=== PATIENT | male | born 1945 | race Caucasian/White ===

== ENCOUNTER 2021-03-22 10:50 | Outpatient (CLI) | payer MEDICARE, SELFPAY ==
--- NOTE | ~2021-03-22 | XR_ITS ---
EXAMINATION: HAND-ÁNGEL ARTHRITIS 3+VIEWS DATE: 03/22/2021 11:21 INDICATION: Unspecified osteoarthritis. TECHNIQUE: Posteroanterior, lateral, and oblique views of the left and of the right hands as well as a ballcatchers view of both hands were obtained. COMPARISON: None. FINDINGS: The distal right ulna is absent with smooth corticated margin suggesting chronic osteotomy. [place]-neck deformities at the bilateral fifth digits, right more prominent than left. Advanced osteoarthritis a t the bilateral wrist joints with severe joint space narrowing and remodeling with prominent subartic ular cystic change involving the bones on both sides of the joint spaces. Additional severe osteoarth ritis at the left mid carpal joint. Moderate osteoarthritis at the right mid carpal joint, at the ángel ateral triscaphe joints and at the left second metacarpophalangeal joint. Mild osteoarthritis at the bilateral first carpal metacarpal joints and majority the remaining metacarpophalangeal and interphal angeal joints. Juxta-articular lytic lesions with thin sclerotic margins either degenerative cysts or chronic erosions at the radial aspect of the heads of the left second and third metacarpals. Bone is land at the tuft of the right third distal phalanx. IMPRESSION: 1. Polyarticular osteoarthritis at the bilateral hands and wrists, advanced at the bilateral wrists a nd right midcarpal joints. The atypical distribution suggests secondary osteoarthritis related to ind eterminate prior insult with differential including prior trauma or crystalline arthropathy. Reviewed, dictated and finalized at location A. IMPRESSION: 1. Polyarticular osteoarthritis at the bilateral hands and wrists, advanced at the bilateral wrists and right midcarpal joints. The atypical distribution sugg ests secondary osteoarthritis related to indeterminate prior insult with differ ential including prior trauma or crystalline arthropathy.
--- NOTE | ~2021-03-22 | XR_ITS ---
EXAMINATION: XR foot LT standing 2V, XR foot RT standing 2V DATE: 03/22/2021 11:21 INDICATION: Rheumatoid arthritis with rheumatoid factor TECHNIQUE: 1. Weight bearing dorsal plantar and lateral views of the left foot were obtained. 2. Weight bearing dorsal plantar and lateral views of the right foot were obtained. COMPARISON: None. FINDINGS: Right foot Mild right pes planus. Hallux valgus with severe osteoarthritis including remodeling of the medial ba se of the first proximal phalanx and lateral head of the first metatarsal. Prominent subarticular cys tic changes at both sides of joint space more prominent at the head of the first metatarsal. Dorsal s ubluxation/dislocation with hyper dorsiflexion and varus angulation at the right second metatarsophal angeal joint. Moderate osteoarthritis at the second metatarsophalangeal joint. Additional mild polyar ticular osteoarthritis at multiple additional joints in the mid and forefoot. Soft tissues are unrema rkable. No ankle joint effusion. Left foot: More prominent left-sided pes planus. Old healed fracture deformity at the mid diaphysis of the secon d metatarsal. There is dorsal dislocation and proximal migration of the base of the first metatarsal relative to the head of the second metatarsal. There is advanced secondary osteoarthritis with osteol ysis at the base of the first proximal phalanx and with significant loss of bone stock at the head of the first metatarsal. The appears to be overlap on the dorsal plantar projection of the base of the fourth proximal phalanx and head of the fourth metatarsal which is obscured on the lateral projection but suggests additional subluxation/dislocation with secondary osteoarthritis. Mild polyarticular os teoarthritis at multiple joints in the mid and forefoot. Prominent subarticular cystic change within sclerotic margins at the distal aspect of the lateral cuneiform. IMPRESSION: 1. Malalignment with associated secondary osteoarthritis at the bilateral first metatarsophalangeal, right second metatarsophalangeal and left fourth metatarsophalangeal joints. 2. Bilateral pes planus, left greater than right. 3. Old healed fracture deformity of the left second metatarsal diaphysis. No acute osseous abnormalit y. 4. Additional mild polyarticular osteoarthritis in the bilateral mid and forefeet. Reviewed, dictated and finalized at location A. IMPRESSION: 1. Malalignment with associated secondary osteoarthritis at the bilateral first metatarsophalangeal, right second metatarsophalangeal and left fourth metatars ophalangeal joints. 2. Bilateral pes planus, left greater than right. 3. Old healed fracture deformity of the left second metatarsal diaphysis. No ac iqugmiut osseous abnormality. 4. Additional mild polyarticular osteoarthritis in the bilateral mid and forefe et.
[2021-03-22 11:50] LABS: Hematocrit 50.8 % (42.0-52.0); Hemoglobin 16.9 g/dL (14.0-18.0); Mean Corpuscular HGB Conc 33.3 g/dl (32-36); Mean Corpuscular Hemoglobin 29.7 pg (26-34); Mean Corpuscular Volume 89.3 fl (80-100); Mean Platelet Volume 9.8 fl (7.4-10.4); Platelet Count Result 195 k/mm3 (150-375); Red Blood Count 5.69 M/mm3 (4.6-6.20); Red Cell Distribution Width 14.1 % (11.5-14.5); White Blood Count 10.1 K/mm3 (4.5-10.0)
[2021-03-22 11:57] LABS: Add Urine Microscopic? YES; Appearance Urine Clear (Clear); Bilirubin Urine Negative (Negative); Blood Urine 1+ (Negative); Color Urine Yellow (Yellow); Glucose Urine UA Negative (Negative); Ketones Urine Negative (Negative); Leukocyte Esterase Ur Negative LEU/UL (Negative); Mucus Urine Few /lpf; Nitrate Urine Negative (Negative); Protein Urine Negative (Negative); RBC Urine 0-2 /hpf (0-2); Specific Grav Ur 1.023 (1.001-1.035); Urobilinogen Urine Negative mg/dL (<2.0); WBC Urine 0-3 /hpf
[2021-03-22 12:05] LABS: Rheumatoid Factor 119.9 IU/ML (<12)
[2021-03-22 12:06] LABS: Alanine Aminotransferase 18 U/L (4-50); Alkaline Phosphatase 94 U/L (38-126); Anion Gap 9 mmol/L (8-16); Aspartate Amino Transferase 27 U/L (17-59); Bilirubin,Total 0.8 mg/dL (0.2-1.3); Blood Urea Nitrogen 20 mg/dL (9-20); CRP 1.7 mg/dL (<1.0); Calcium 9.6 mg/dL (8.4-10.2); Carbon Dioxide 23 mmol/L (22-30); Chloride 107 mmol/L (98-107); Estimated Glomerular Filt Rate > 60; Glucose 105 mg/dL (75-110); Potassium 4.3 mmol/L (3.4-5.0); Sodium 139 mmol/L (137-145)
[2021-03-22 12:45] LABS: Erythrocyte Sedimentation Rate 17 mm/hr (0-20)
[2021-03-22 12:56] LABS: Hepatitis B Surface Antigen Negative (Negative)
[2021-03-22 13:13] LABS: Hepatitis B Surface Anti Res Negative; Hepatitis C Virus Antibody Negative (Negative)
[2021-03-28 08:05] LABS: Anti Cyclic Citrullinated Pept >250 Units (<20)
== END 2021-03-22 10:51 | disposition home or self-care (01) ==
PROVIDERS: PCP Family Medicine; Visit Provider Internal Medicine
DX: M05.79 Rheumatoid arthritis with rheumatoid factor of multiple sites without organ or systems involvement (principal); M19.071 Primary osteoarthritis, right ankle and foot; M19.072 Primary osteoarthritis, left ankle and foot; M19.031 Primary osteoarthritis, right wrist; M19.032 Primary osteoarthritis, left wrist; M19.041 Primary osteoarthritis, right hand; M19.042 Primary osteoarthritis, left hand
CPT/HCPCS: 36415; 73130; 73620; 80053; 81001; 85027; 85652; 86038; 86039; 86140; 86200; 86430; 86706; 86803; 87340

== ENCOUNTER 2021-07-08 12:39 | Outpatient (CLI) | payer MEDICARE, SELFPAY ==
[2021-07-08 13:16] LABS: Hematocrit 47.2 % (42.0-52.0); Hemoglobin 15.7 g/dL (14.0-18.0); Mean Corpuscular HGB Conc 33.3 g/dl (32-36); Mean Corpuscular Hemoglobin 29.8 pg (26-34); Mean Corpuscular Volume 89.6 fl (80-100); Mean Platelet Volume 10.2 fl (7.4-10.4); Platelet Count Result 184 k/mm3 (150-375); Red Blood Count 5.27 M/mm3 (4.6-6.20); Red Cell Distribution Width 14.5 % (11.5-14.5); White Blood Count 12.5 K/mm3 (4.5-10.0)
[2021-07-08 13:25] LABS: Alanine Aminotransferase 21 U/L (4-50); Alkaline Phosphatase 88 U/L (38-126); Anion Gap 8 mmol/L (8-16); Aspartate Amino Transferase 29 U/L (17-59); Bilirubin,Total 0.6 mg/dL (0.2-1.3); Blood Urea Nitrogen 25 mg/dL (9-20); CRP 0.7 mg/dL (<1.0); Calcium 9.7 mg/dL (8.4-10.2); Carbon Dioxide 24 mmol/L (22-30); Chloride 106 mmol/L (98-107); Estimated Glomerular Filt Rate 59; Glucose 108 mg/dL (65-110); Potassium 4.5 mmol/L (3.4-5.0); Sodium 138 mmol/L (137-145)
[2021-07-08 20:18] LABS: Erythrocyte Sedimentation Rate 16 mm/hr (0-20)
== END 2021-07-08 12:40 | disposition home or self-care (01) ==
PROVIDERS: PCP Family Medicine; Visit Provider Internal Medicine
DX: M05.79 Rheumatoid arthritis with rheumatoid factor of multiple sites without organ or systems involvement (principal); M19.90 Unspecified osteoarthritis, unspecified site
CPT/HCPCS: 36415; 80053; 85027; 85652; 86140; 86480

== ENCOUNTER 2021-11-25 16:44 | Outpatient (CLI) | payer MEDICARE, SELFPAY ==
[2021-11-25 17:37] LABS: Erythrocyte Sedimentation Rate 17 mm/hr (0-20)
[2021-11-25 17:59] LABS: CRP 1.3 mg/dL (<1.0)
[2021-11-25 18:02] LABS: Complement C3 97 mg/dL (88-165)
[2021-11-27 11:08] LABS: SM Antibody <1.0; SM/RNP Antibody <1.0; SS-A <1.0; SS-B <1.0
[2021-11-28 04:58] LABS: Lupus dRVVT 1:1 Mix Interpreta Not Indicated; Lupus dRVVT Screen 33 sec (<=45); PTT-LA Screen 33 sec (<=40)
== END 2021-11-25 16:45 | disposition home or self-care (01) ==
LOC: ANHLAB 16:49
PROVIDERS: PCP Family Medicine; Visit Provider Internal Medicine
DX: M05.79 Rheumatoid arthritis with rheumatoid factor of multiple sites without organ or systems involvement (principal); M19.90 Unspecified osteoarthritis, unspecified site
CPT/HCPCS: 36415; 85613; 85652; 85730; 86140; 86160; 86225; 86235

== ENCOUNTER 2024-03-31 09:50 | Outpatient (CLI) | payer MEDICARE, SELFPAY ==
--- NOTE | ~2024-03-31 | MMUS_ITS ---
EXAMINATION: MM diagnostic meghna LT w sapna, US breast LT limited HISTORY: Follow-up left breast asymmetry TECHNIQUE: Additional 3-D tomosynthesis images of the left breast were performed and synthetic 2-D im ages were generated. Comparison right MLO view performed. CAD analysis was submitted and interpreted. High resolution Limited left breast ultrasound was performed. COMPARISON: None BREAST PARENCHYMAL COMPOSITION: Not dense: There are scattered areas of fibroglandular density. FINDINGS: MAMMOGRAPHIC FINDINGS: There is bilateral symmetric gynecomastia. No suspicious masses, calcifications or architectural dist ortion in either breast to suggest malignancy. ULTRASOUND: Limited left breast ultrasound: Normal heterogeneous echotexture without focal solid or cystic mass. IMPRESSION: 1. No evidence for malignancy in the left breast. 2. Recommend follow-up clinical management for gynecomastia. BI-RADS Category 1: Negative Reviewed, dictated and finalized at location B. IMPRESSION: 1. No evidence for malignancy in the left breast. 2. Recommend follow-up clinical management for gynecomastia. BI-RADS Category 1: Negative
== END 2024-03-31 09:51 ==
LOC: MICIMG 09:52
PROVIDERS: PCP Family Medicine; Visit Provider Family Medicine
DX: N63.25 Unspecified lump in the left breast, overlapping quadrants (principal)
CPT/HCPCS: 76642; 77061; 77065; G0279

== ENCOUNTER 2025-07-04 07:46 | Outpatient (CLI) | payer MEDICARE, SELFPAY ==
--- NOTE | ~2025-07-04 | US_ITS ---
EXAMINATION: US retroperitoneal comp DATE: 07/04/2025 08:28 INDICATION: Kidney stones. TECHNIQUE: Multiple ultrasound grayscale images of the kidneys were obtained. COMPARISON: CT 04/01/2004 FINDINGS: The right kidney measures 9.0 x 4.7 x 5.7 cm. The left kidney measures 10.5 x 5.8 x 4.8 cm. The kidneys demonstrate normal parenchymal echogenicity. There are 3.6 cm and 2.3 cm hypoechoic masses in left kidney. There is no hydronephrosis. The bladder is normal. IMPRESSION: 1. Left kidney masses, which may be hemorrhagic cyst(s) or renal cell carcinoma(s). Abdomen CT or MRI without and with contrast is recommended. Reviewed, dictated and finalized at location E. IMPRESSION: 1. Left kidney masses, which may be hemorrhagic cyst(s) or renal cell carcinom a(s). Abdomen CT or MRI without and with contrast is recommended.
== END 2025-07-04 07:47 | disposition home or self-care (01) ==
LOC: MICIMG 07:47
PROVIDERS: PCP Family Medicine; Visit Provider Urology
DX: Z87.442 Personal history of urinary calculi (principal); N28.89 Other specified disorders of kidney and ureter
CPT/HCPCS: 76770